=== PATIENT | male | born 1960 | race Caucasian/White ===

== ENCOUNTER 2016-12-18 04:28 | Inpatient (IN) | payer OTHER, MEDICARE ==
[~2016-12-18] VITALS: Ht 180.3 cm; Wt 72.7 kg
[2016-12-18] VITALS (16 sets, daily range): BP systolic 78–148; BP diastolic 48–80
[~2016-12-18 04:28] MED LIST: ALPR0.25 PO; CHOL100013 PO; POTASSIUM CHLO10 MEQ PO
[2016-12-18 04:41] LABS: BASO # 0.1 x10^3/uL (0.0-0.2); BASO % 1 % (0-3); EOS % 0 % (0-3); HEMATOCRIT 45.9 % (39.0-53.0); HEMOGLOBIN 14.9 g/dL (13.0-17.5); LYMPH # 1.3 x10^3/uL (1.0-4.8); LYMPH % 12 % (24-48); MEAN CORPUSCULAR HEMOGLOBIN 33 pg (25-35); MEAN CORPUSCULAR HGB CONC 33 g/dL (31-37); MEAN CORPUSCULAR VOLUME 100 fL (79-100); MONO % 4 % (0-9); NEUT % 83 % (31-73); PLATELET COUNT 333 x10^3/uL (140-400); RED BLOOD COUNT 4.58 x10^6/uL (4.30-5.70); RED CELL DISTRIBUTION WIDTH 15.2 % (11.5-14.5); WHITE BLOOD COUNT 11.5 x10^3/uL (4.0-11.0)
[2016-12-18] MEDS ORDERED: 0.9 % SODIUM CHLORIDE 10 ML DISP.SYRIN. IV PRN (04:45)
[2016-12-18] MEDS ORDERED: NALOXONE 2 MG/2 ML DISP.SYRIN. IV ONE (04:45)
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
[2016-12-18 04:54] LABS: CALCIUM 9.3 mg/dL (8.5-10.1); CREATININE 1.4 mg/dL (0.7-1.3); GFR 52.4; POTASSIUM 4.5 mmol/L (3.5-5.1)
[2016-12-18 04:56] LABS: ALBUMIN 3.8 g/dL (3.4-5.0); TOTAL BILIRUBIN 1.9 mg/dL (0.2-1.0); TOTAL PROTEIN 7.8 g/dL (6.4-8.2)
[2016-12-18] MEDS ORDERED: ONDANSETRON PF 4 MG/2 ML VIAL. IV PRN ×2 (05:00→06:00)
[2016-12-18] MEDS ORDERED: IPRATRPIUM/ALBUTEROL 0.5/2.5MG 3 ML NEBU. NEB ONE (05:00)
[2016-12-18] MEDS ORDERED: CONTRAST GIVEN MC PRN (05:15)
[2016-12-18] MEDS ORDERED: IOHEXOL 300 MG/ML 75 ML VIAL IV ONE (05:30)
[2016-12-18] MEDS ORDERED: NALOXONE 2 MG in IV DEXTROSE 5% 500 ML IV ONE (05:30)
[2016-12-18 05:32] LABS: INR 1.1 (0.8-1.1); PROTHROMBIN TIME PATIENT 13.4 SEC (11.7-14.0)
--- NOTE | 2016-12-18 05:45 | EKG ---
[facility] [address] [place] [address] Test Date: 2016-12-18 Test Time: 04:37:58 Pat Name: SHAMEKA VELEZ Department: Room: Gender: M Fitness Supervisor: : 1960 Requested By: CARLTON PIEDRA Order Number: [id number] Reading MD: Zay Munroe Measurements Intervals Carpenter Rate: 124 P: -112 VA: 76 QRS: -2 QRSD: 94 T: 49 QT: 354 QTc: 513 Interpretive Statements SUPRAVENTRICULAR RHYTHM LOW LIMB LEAD VOLTAGE QRS(T) CONTOUR ABNORMALITY CONSIDER ANTEROLATERAL MYOCARDIAL DAMAGE CONSISTENT WITH INFERIOR INFARCT PROBABLY OLD RI6.01 Unconfirmed report No previous ECG available for comparison Electronically Signed On 12-18-2016 13:25:47 CDT by Zay Munroe
[2016-12-18] MEDS ORDERED: PIPERACILLIN/TAZOBACTAM 3.375 GM in IV NORMAL SALINE 50ML 50 ML IV ONE (06:00)
--- NOTE | 2016-12-18 06:02 | RAD ---
INDICATION: head and neck pain after fall COMPARISON: October 06, 2015 TECHNIQUE: Axial CT images obtained through the head and cervical spine without intravenous contrast. Coronal and sagittal reformats processed of cervical spine. One or more of the following individualized dose reduction techniques were utilized for this examination: 1. Automated exposure control; 2. Adjustment of the mA and/or kV according to patient size; 3. Use of iterative reconstruction technique. FINDINGS: Head: No midline shift. Suprasellar cistern is not effaced. Scattered foci low attenuation of white matter. Postoperative changes to the left globe. Partial opacification of frontal sinus Cervical: No definite acute fracture. No significant malalignment. No evidence of perivertebral hematoma. Degenerative changes of cervical spine. Calcification within left side of neck soft tissues. IMPRESSION: No acute intracranial hemorrhage. Scattered foci of low-attenuation within the white matter. Nonspecific but can be seen with chronic small vessel ischemic disease. Partial opacification frontal sinus which can be from congestion or sinusitis. No definite acute fracture or dislocation of the cervical spine. Electronically signed by: Octavio Pimentel MD (12/18/2016 5:59 AM) [facility]
[2016-12-18 06:16] LABS: BARBITURATES NEG (NEG); BENZODIAZEPINES POS (NEG); CANNABINOIDS POS (NEG); COCAINE NEG (NEG); METHADONE NEG (NEG); OPIATES POS (NEG); PHENCYCLIDINE NEG (NEG)
--- NOTE | 2016-12-18 06:24 | RAD ---
INDICATION: pt. overdosed; Omni 300, 60ml COMPARISON: None. TECHNIQUE: Axial CT images obtained through the chest abdomen and pelvis with intravenous contrast. One or more of the following individualized dose reduction techniques were utilized for this examination: 1. Automated exposure control; 2. Adjustment of the mA and/or kV according to patient size; 3. Use of iterative reconstruction technique. FINDINGS: Chest: Mild cystic changes near lung apices. Mild linear opacity left lung base. Linear opacity right lung base. No evidence of pneumothorax. Mild groundglass opacity right upper lung. Thoracic aorta is not aneurysmal. Mild calcific atherosclerosis. Scattered small lymph nodes are seen within the mediastinum. 7 mm left lung nodule. Degenerative changes spine. Abdomen and pelvis: Abdominal aorta is not aneurysmal. Moderate calcific atherosclerosis. No intrahepatic bile duct dilation. No peripancreatic edema. Spleen unremarkable. No hydronephrosis. Bladder is partially distended. No dilated loops of bowel to suggest obstruction. Mild T12 compression deformity. Mild T11 loss of height. IMPRESSION: Mild groundglass opacity in right upper lung. Could be a region of atelectasis but pneumonitis also in differential. Linear opacities in the lower lungs. Could be secondary to atelectasis given the morphology but cannot exclude infectious causes. 7 mm left lung nodule. Mild compression deformities of T11 and T12 of unknown age. Would correlate with pain within the region. Calcific atherosclerosis. Fleischner Society recommendation for solid lung nodule follow up. (Radiology 2005; 237; 395-400): In a low risk patient: <4mm - No follow up required. >4-6mm- 12 month follow up, if unchanged, no further follow up. >6-8mm- 6-12 month follow up, then at 18-24 months if no change. >8mm- 3, 9, 24 month follow up or consideration of PET/CT. In a high risk patient (history of smoking or other known risk factors): <4mm - 12 month follow up, if unchanged then no further follow up. >4-6mm- 6-12 month follow up, then at 18-24 months if no change. >6-8mm- 3-6 month follow up, then at 9-12 months and 24 months if no change >8mm- Same as for low risk patient. Electronically signed by: Octavio Pimentel MD (12/18/2016 6:21 AM) [facility]
[2016-12-18] MEDS ORDERED: NALOXONE IV ONE ×3 (07:00→09:00)
[2016-12-18] MEDS ORDERED: DEXTROSE 5% IV ONE ×3 (07:00→09:00)
--- NOTE | 2016-12-18 07:28 | PDOC ---
PULMONARY PROGRESS NOTES Vitals Vital Signs Date Time Temp Pulse Resp B/P (MAP) Pulse Ox O2 Delivery O2 Flow Rate FiO2 12/18/16 06:00 106 105/60 (75) 93 Nasal Cannula 6.0 12/18/16 04:30 97.4 15 97.4 Lungs: Clear Labs Laboratory Tests Test 12/18/16 04:35 12/18/16 05:50 White Blood Count 11.5 x10^3/uL (4.0-11.0) Red Blood Count 4.58 x10^6/uL (4.30-5.70) Hemoglobin 14.9 g/dL (13.0-17.5) Hematocrit 45.9 % (39.0-53.0) Mean Corpuscular Volume 100 fL (79-100) Mean Corpuscular Hemoglobin 33 pg (25-35) Mean Corpuscular Hemoglobin Concent 33 g/dL (31-37) Red Cell Distribution Width 15.2 % (11.5-14.5) Platelet Count 333 x10^3/uL (140-400) Neutrophils (%) (Auto) 83 % (31-73) Lymphocytes (%) (Auto) 12 % (24-48) Monocytes (%) (Auto) 4 % (0-9) Eosinophils (%) (Auto) 0 % (0-3) Basophils (%) (Auto) 1 % (0-3) Neutrophils # (Auto) 9.5 x10^3uL (1.8-7.7) Lymphocytes # (Auto) 1.3 x10^3/uL (1.0-4.8) Monocytes # (Auto) 0.5 x10^3/uL (0.0-1.1) Eosinophils # (Auto) 0.0 x10^3/uL (0.0-0.7) Basophils # (Auto) 0.1 x10^3/uL (0.0-0.2) Prothrombin Time 13.4 SEC (11.7-14.0) Prothromb Time International Ratio 1.1 (0.8-1.1) Activated Partial Thromboplast Time 30 SEC (24-38) Sodium Level 137 mmol/L (136-145) Potassium Level 4.5 mmol/L (3.5-5.1) Chloride Level 96 mmol/L (98-107) Carbon Dioxide Level 29 mmol/L (21-32) Anion Gap 12 (6-14) Blood Urea Nitrogen 7 mg/dL (8-26) Creatinine 1.4 mg/dL (0.7-1.3) Estimated GFR (Cockcroft-Gault) 52.4 Glucose Level 214 mg/dL (70-99) Lactic Acid Level 5.6 mmol/L (0.4-2.0) Calcium Level 9.3 mg/dL (8.5-10.1) Total Bilirubin 1.9 mg/dL (0.2-1.0) Direct Bilirubin 1.0 mg/dL (0.0-0.2) Aspartate Amino Transf (AST/SGOT) 252 U/L (15-37) Alanine Aminotransferase (ALT/SGPT) 234 U/L (16-63) Alkaline Phosphatase 105 U/L (46-116) Creatine Kinase 129 U/L (39-308) Troponin I Quantitative 0.459 ng/mL (0.000-0.055) NJ-Hly-P-Type Natriuretic Peptide 639 pg/mL (0-124) Total Protein 7.8 g/dL (6.4-8.2) Albumin 3.8 g/dL (3.4-5.0) Lipase 101 U/L (73-393) Salicylates Level < 2.8 mg/dL (2.8-20.0) Salicylate Last Dose Date Unknown Salicylate Last Dose Time Unknown Acetaminophen Level < 2 mcg/ml (10-30) Acetaminophen Last Dose Date Unknown Acetaminophen Last Dose Time Unknown Urine Opiates Screen Pos (NEG) Urine Methadone Screen Neg (NEG) Urine Barbiturates Neg (NEG) Urine Phencyclidine Screen Neg (NEG) Urine Amphetamine/Methamphetamine Neg (NEG) Urine Benzodiazepines Screen Pos (NEG) Urine Cocaine Screen Neg (NEG) Urine Cannabinoids Screen Pos (NEG) Urine Ethyl Alcohol Neg (NEG) Laboratory Tests Test 12/18/16 04:35 12/18/16 05:50 White Blood Count 11.5 x10^3/uL (4.0-11.0) Red Blood Count 4.58 x10^6/uL (4.30-5.70) Hemoglobin 14.9 g/dL (13.0-17.5) Hematocrit 45.9 % (39.0-53.0) Mean Corpuscular Volume 100 fL (79-100) Mean Corpuscular Hemoglobin 33 pg (25-35) Mean Corpuscular Hemoglobin Concent 33 g/dL (31-37) Red Cell Distribution Width 15.2 % (11.5-14.5) Platelet Count 333 x10^3/uL (140-400) Neutrophils (%) (Auto) 83 % (31-73) Lymphocytes (%) (Auto) 12 % (24-48) Monocytes (%) (Auto) 4 % (0-9) Eosinophils (%) (Auto) 0 % (0-3) Basophils (%) (Auto) 1 % (0-3) Neutrophils # (Auto) 9.5 x10^3uL (1.8-7.7) Lymphocytes # (Auto) 1.3 x10^3/uL (1.0-4.8) Monocytes # (Auto) 0.5 x10^3/uL (0.0-1.1) Eosinophils # (Auto) 0.0 x10^3/uL (0.0-0.7) Basophils # (Auto) 0.1 x10^3/uL (0.0-0.2) Prothrombin Time 13.4 SEC (11.7-14.0) Prothromb Time International Ratio 1.1 (0.8-1.1) Activated Partial Thromboplast Time 30 SEC (24-38) Sodium Level 137 mmol/L (136-145) Potassium Level 4.5 mmol/L (3.5-5.1) Chloride Level 96 mmol/L (98-107) Carbon Dioxide Level 29 mmol/L (21-32) Anion Gap 12 (6-14) Blood Urea Nitrogen 7 mg/dL (8-26) Creatinine 1.4 mg/dL (0.7-1.3) Estimated GFR (Cockcroft-Gault) 52.4 Glucose Level 214 mg/dL (70-99) Lactic Acid Level 5.6 mmol/L (0.4-2.0) Calcium Level 9.3 mg/dL (8.5-10.1) Total Bilirubin 1.9 mg/dL (0.2-1.0) Direct Bilirubin 1.0 mg/dL (0.0-0.2) Aspartate Amino Transf (AST/SGOT) 252 U/L (15-37) Alanine Aminotransferase (ALT/SGPT) 234 U/L (16-63) Alkaline Phosphatase 105 U/L (46-116) Creatine Kinase 129 U/L (39-308) Troponin I Quantitative 0.459 ng/mL (0.000-0.055) OF-Oax-G-Type Natriuretic Peptide 639 pg/mL (0-124) Total Protein 7.8 g/dL (6.4-8.2) Albumin 3.8 g/dL (3.4-5.0) Lipase 101 U/L (73-393) Salicylates Level < 2.8 mg/dL (2.8-20.0) Salicylate Last Dose Date Unknown Salicylate Last Dose Time Unknown Acetaminophen Level < 2 mcg/ml (10-30) Acetaminophen Last Dose Date Unknown Acetaminophen Last Dose Time Unknown Urine Opiates Screen Pos (NEG) Urine Methadone Screen Neg (NEG) Urine Barbiturates Neg (NEG) Urine Phencyclidine Screen Neg (NEG) Urine Amphetamine/Methamphetamine Neg (NEG) Urine Benzodiazepines Screen Pos (NEG) Urine Cocaine Screen Neg (NEG) Urine Cannabinoids Screen Pos (NEG) Urine Ethyl Alcohol Neg (NEG) Medications Active Scripts Medications Dose Route/Sig Max Daily Dose Days Date Category Xanax (Alprazolam) 0.25 Mg Tablet 1 Tab PO DAILY 04/30/15 Reported Vitamin D (Cholecalciferol (Vitamin D3)) 1,000 Unit Capsule 1 Cap PO DAILY 04/30/15 Reported Potassium Chloride 10 Meq Capsule.er 1 Cap PO DAILY 04/30/15 Reported Impression . ACUTE RESP FAILURE SEC TO AECOPD AND NARCOTIC USE POLYSUBSTANCE USE PULMONARY CONTUSION 7 MM NODULE SEE ORDERS THANKS BETTE ZAZUETA MD Dec 18, 2016 07:28
[2016-12-18] MEDS ORDERED: ALBUTEROL SULFATE 2.5 MG/3 ML NEBU. NEB PRN (07:30)
[2016-12-18] MEDS: IV NORMAL SALINE 1000ML BAG 1,000 ML IV SCH ×2 (07:38→19:37)
[2016-12-18] MEDS: IPRATRPIUM/ALBUTEROL 0.5/2.5MG 3 ML NEBU. NEB SCH ×4 (08:00→20:06)
[2016-12-18] MEDS ORDERED: IPRATRPIUM/ALBUTEROL 0.5/2.5MG 3 ML NEBU. NEB SCH (08:00)
--- NOTE | 2016-12-18 08:04 | RAD ---
Indication fall, rib fractures. Pain. A single view of the chest was obtained and is compared to an examination 10/07/2015. The heart and pulmonary vessels are within normal limits. A focal process in the chest is not seen. Significant pleural fluid is not present. There is no pneumothorax. The visualized bony structures appear grossly intact. IMPRESSION: No acute or focal process is seen in the chest
[2016-12-18] MEDS ORDERED: IV NORMAL SALINE 1000ML BAG 1,000 ML IV ONE ×2 (08:45→11:15)
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
[2016-12-18] MEDS ORDERED: NICOTINE 14MG PATCH. TD PRN (09:00)
[2016-12-18] MEDS ORDERED: NICOTINE POLACRILEX 2MG GUM PACKAGE of 12. BC PRN (09:00)
[2016-12-18] MEDS ORDERED: ACETAMINOPHEN 325 MG TABLET. PO PRN (09:00)
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
[2016-12-18] MEDS: ENOXAPARIN 40 MG/0.4 ML SYRINGE. SQ SCH (09:20)
[2016-12-18] MEDS: LIDOCAINE (700MG/PATCH) PATCH. TD SCH (09:20)
[2016-12-18] MEDS: methylPREDNISolone SOD SUCC PF 125 MG/2 ML VIAL. IV SCH ×2 (09:21→21:00)
--- NOTE | 2016-12-18 11:34 | PDOC ---
Infectious Disease Note Vital Sign Vital Signs Vital Signs Date Time Temp Pulse Resp B/P (MAP) Pulse Ox O2 Delivery O2 Flow Rate FiO2 12/18/16 07:15 102 33 111/67 (82) 99 Nasal Cannula 6.0 12/18/16 06:15 97.7 97.7 Physical Exam PHYSICAL EXAM O2 2LNC Price Labs Lab Laboratory Tests Test 12/18/16 04:35 12/18/16 05:50 12/18/16 07:50 White Blood Count 11.5 x10^3/uL (4.0-11.0) Red Blood Count 4.58 x10^6/uL (4.30-5.70) Hemoglobin 14.9 g/dL (13.0-17.5) Hematocrit 45.9 % (39.0-53.0) Mean Corpuscular Volume 100 fL (79-100) Mean Corpuscular Hemoglobin 33 pg (25-35) Mean Corpuscular Hemoglobin Concent 33 g/dL (31-37) Red Cell Distribution Width 15.2 % (11.5-14.5) Platelet Count 333 x10^3/uL (140-400) Neutrophils (%) (Auto) 83 % (31-73) Lymphocytes (%) (Auto) 12 % (24-48) Monocytes (%) (Auto) 4 % (0-9) Eosinophils (%) (Auto) 0 % (0-3) Basophils (%) (Auto) 1 % (0-3) Neutrophils # (Auto) 9.5 x10^3uL (1.8-7.7) Lymphocytes # (Auto) 1.3 x10^3/uL (1.0-4.8) Monocytes # (Auto) 0.5 x10^3/uL (0.0-1.1) Eosinophils # (Auto) 0.0 x10^3/uL (0.0-0.7) Basophils # (Auto) 0.1 x10^3/uL (0.0-0.2) Prothrombin Time 13.4 SEC (11.7-14.0) Prothromb Time International Ratio 1.1 (0.8-1.1) Activated Partial Thromboplast Time 30 SEC (24-38) Sodium Level 137 mmol/L (136-145) Potassium Level 4.5 mmol/L (3.5-5.1) Chloride Level 96 mmol/L (98-107) Carbon Dioxide Level 29 mmol/L (21-32) Anion Gap 12 (6-14) Blood Urea Nitrogen 7 mg/dL (8-26) Creatinine 1.4 mg/dL (0.7-1.3) Estimated GFR (Cockcroft-Gault) 52.4 Glucose Level 214 mg/dL (70-99) Lactic Acid Level 5.6 mmol/L (0.4-2.0) 2.3 mmol/L (0.4-2.0) Calcium Level 9.3 mg/dL (8.5-10.1) Total Bilirubin 1.9 mg/dL (0.2-1.0) Direct Bilirubin 1.0 mg/dL (0.0-0.2) Aspartate Amino Transf (AST/SGOT) 252 U/L (15-37) Alanine Aminotransferase (ALT/SGPT) 234 U/L (16-63) Alkaline Phosphatase 105 U/L (46-116) Creatine Kinase 129 U/L (39-308) Troponin I Quantitative 0.459 ng/mL (0.000-0.055) GH-Yqe-O-Type Natriuretic Peptide 639 pg/mL (0-124) Total Protein 7.8 g/dL (6.4-8.2) Albumin 3.8 g/dL (3.4-5.0) Lipase 101 U/L (73-393) Salicylates Level < 2.8 mg/dL (2.8-20.0) Salicylate Last Dose Date Unknown Salicylate Last Dose Time Unknown Acetaminophen Level < 2 mcg/ml (10-30) Acetaminophen Last Dose Date Unknown Acetaminophen Last Dose Time Unknown Urine Opiates Screen Pos (NEG) Urine Methadone Screen Neg (NEG) Urine Barbiturates Neg (NEG) Urine Phencyclidine Screen Neg (NEG) Urine Amphetamine/Methamphetamine Neg (NEG) Urine Benzodiazepines Screen Pos (NEG) Urine Cocaine Screen Neg (NEG) Urine Cannabinoids Screen Pos (NEG) Urine Ethyl Alcohol Neg (NEG) Objective Assessment Pneumonitis - + sinus drainage and cough Lactic acidosis, improved Encephalopathy, improved post Narcan DIONNE Leukocytosis, on steroids now Elevated LFTs Recent rib fracture and limited ROM/pain of left shoulder post fall off ladder a week ago Polypharmacy: benzos, opiates Marijuana use Plan Plan of Care Levaquin Cont Zosyn, 8/5 Sputum cult and strep antigen f/u am labs and Supportive care Thank you Attending Co-Sign Attending Co-Sign The patient was seen and interviewed as well as examined at the bedside. The chart was reviewed. The case was discussed. Agree with the plan of care. LATRICIA CHOI APRN Dec 18, 2016 11:34 FADUMO SONG MD Dec 18, 2016 12:16
[2016-12-18] MEDS: PIPERACILLIN/TAZOBACTAM 3.375 GM in IV NORMAL SALINE 50ML 50 ML IV SCH ×2 (12:40→17:14)
--- NOTE | 2016-12-18 14:57 | PDOC2 ---
CONSULT Date of Consult Date of Consult DATE: 12/18/16 TIME: 14:53 Reason for Consult Reason for Consult: Chest pain and possible heart failure Referring Physician Referring Physician: Dr. Zarco Identification/Chief Complaint Chief Complaint Patient was found nonresponsive at home. Problems: Source Source: Caregiver, Chart review History of Present Illness Reason for Visit: The patient is a 56-year-old male who was found unresponsive at home by his family early this morning. EMS was called and the patient responded to Narcan. His history is significant for hypertension, anxiety and a left eye implants. The patient also had a fall and had a reported rib fracture last week. At the present time he is relatively comfortable in bed. He has no reported history of coronary artery disease or documented heart failure. Past Medical History Cardiovascular: HTN Pulmonary: No pertinent hx, COPD Psych: Anxiety Past Surgical History Past Surgical History: Other Family History Family History: No Significant Social History <1 pack per day ALCOHOL: other Drugs: None, Marijuana Current Problem List Problem List Problems Medical Problems: (1) CHF (congestive heart failure) Status: Acute (2) Elevated liver enzymes Status: Acute (3) Elevated troponin Status: Acute (4) Respiratory failure Status: Acute (5) Rib fracture Status: Acute (6) Unintentional poisoning by opioid Status: Acute Current Medications Current Medications Current Medications Sodium Chloride (Normal Saline Flush) 10 ml QSHIFT PRN IV AFTER MEDS AND BLOOD DRAWS; Start 12/18/16 at 04:45 Albuterol/ Ipratropium (Duoneb) 3 ml 1X ONCE NEB Last administered on 04:40; Start 12/18/16 at 05:00; Stop 12/18/16 at 05:01; Status DC Naloxone HCl (Narcan) 2 mg 1X ONCE IV Last administered on 12/18/16 04:41; Start 12/18/16 at 04:45; Stop 12/18/16 at 04:46; Status DC Ondansetron HCl (Zofran) 4 mg PRN Q6HRS PRN IV NAUSEA/VOMITING; Start 12/18/16 at 05:00 Naloxone HCl 2 mg/ Dextrose 502 ml @ 0 mls/hr 1X ONCE IV Last administered on 12/18/16 05:08; Start 12/18/16 at 05:30; Stop 12/18/16 at 05:31; Status DC Iohexol (Omnipaque 300 Mg/ml) 60 ml 1X ONCE IV ; Start 12/18/16 at 05:30; Stop 12/18/16 at 05:31; Status DC Info (Do NOT chart on this entry -- for MONITORING) 1 each PRN DAILY PRN MC SEE COMMENTS; Start 12/18/16 at 05:15; Stop 12/20/16 at 05:14 Piperacillin Sod/ Tazobactam Sod 3.375 gm/Sodium Chloride 50 ml @ 100 mls/hr 1X ONCE IV Last administered on 12/18/16 06:48; Start 12/18/16 at 06:00; Stop 12/18/16 at 06:29; Status DC Levofloxacin/ Dextrose 150 ml @ 100 mls/hr 1X ONCE IV Last administered on 06:48; Start 12/18/16 at 06:00; Stop 12/18/16 at 07:29; Status DC Ondansetron HCl (Zofran) 4 mg PRN Q8HRS PRN IV NAUSEA/VOMITING; Start 12/18/16 at 06:00; Stop 12/18/16 at 07:32; Status DC Albuterol/ Ipratropium (Duoneb) 3 ml RTQID NEB ; Start 12/18/16 at 08:00; Stop at 08:00; Status DC Naloxone HCl 2 mg/ Dextrose 102 ml @ 0 mls/hr 1X ONCE IV Last administered on 12/18/16 06:47; Start 12/18/16 at 07:00; Stop 12/18/16 at 07:01; Status DC Naloxone HCl 2 mg/ Dextrose 102 ml @ 0 mls/hr 1X ONCE IV Last administered on 12/18/16 07:38; Start 12/18/16 at 07:30; Stop 12/18/16 at 07:31; Status DC Sodium Chloride 1,000 ml @ 100 mls/hr Q10H IV Last administered on 12/18/16 07 :38; Start 12/18/16 at 07:15 Levofloxacin/ Dextrose 100 ml @ 100 mls/hr Q24H IV ; Start 12/18/16 at 08:00; Stop 12/18/16 at 08:00; Status DC Enoxaparin Sodium (Lovenox 40mg Syringe) 40 mg DAILY SQ Last administered on 09:20; Start 12/18/16 at 09:00 Albuterol Sulfate (Ventolin Neb Soln) 2.5 mg PRN Q2HR PRN NEB DYSPNEA; Start at 07:30 Albuterol/ Ipratropium (Duoneb) 3 ml RTQID NEB Last administered on 12/18/16 11 :55; Start 12/18/16 at 08:00 Methylprednisolone Sodium Succinate (SOLU-Medrol 125MG VIAL) 80 mg BID IV Last administered on 12/18/16 09:21; Start 12/18/16 at 09:00 Levofloxacin/ Dextrose 100 ml @ 100 mls/hr Q24H IV ; Start 12/19/16 at 07:00 Lidocaine (Lidoderm) 1 patch DAILY TD Last administered on 12/18/16 09:20; Start 12/18/16 at 09:00 Sodium Chloride 1,000 ml @ 1,000 mls/hr 1X ONCE IV Last administered on 08:53; Start 12/18/16 at 08:45; Stop 12/18/16 at 09:44; Status DC Naloxone HCl 2 mg/ Dextrose 102 ml @ 0 mls/hr 1X ONCE IV ; Start 12/18/16 at 09: 00; Stop 12/18/16 at 09:00; Status DC Acetaminophen (Tylenol) 650 mg PRN Q6HRS PRN PO pain; Start 12/18/16 at 09:00 Nicotine (Nicoderm Cq 14mg) 1 patch PRN DAILY PRN TD SMOKING CESSATION Last administered on 12/18/16 09:20; Start 12/18/16 at 09:00 Nicotine Polacrilex (Nicorette Gum) 1 each PRN Q1HR PRN BC SMOKING CESSATION; Start 12/18/16 at 09:00 Sodium Chloride 1,000 ml @ 1,000 mls/hr 1X ONCE IV Last administered on 12:40; Start 12/18/16 at 11:15; Stop 12/18/16 at 12:14; Status DC Piperacillin Sod/ Tazobactam Sod 3.375 gm/Sodium Chloride 50 ml @ 100 mls/hr Q6HRS IV Last administered on 12/18/16 12:40; Start 12/18/16 at 13:00 Active Scripts Active Reported Xanax (Alprazolam) 0.25 Mg Tablet 1 Tab PO DAILY Allergies Allergies: Coded Allergies: acetaminophen (Verified Adverse Reaction, Intermediate, LIVER CA, HEP C, 04/30/15) ROS General: YES: Fatigue Physical Exam General: mild distress Lungs: Other (mildly decreased breath sounds) Heart: Other (regular rhythm with rate of 100) Abdomen: Normal bowel sounds Vitals VITALS Vital Signs Date Time Temp Pulse Resp B/P (MAP) Pulse Ox O2 Delivery O2 Flow Rate FiO2 12/18/16 11:56 97 Nasal Cannula 2.0 12/18/16 11:00 98 17 105/62 (76) 12/18/16 09:00 97.8 97.8 Labs Labs Laboratory Tests Test 12/18/16 04:35 12/18/16 05:50 12/18/16 07:50 12/18/16 12:05 White Blood Count 11.5 x10^3/uL (4.0-11.0) Red Blood Count 4.58 x10^6/uL (4.30-5.70) Hemoglobin 14.9 g/dL (13.0-17.5) Hematocrit 45.9 % (39.0-53.0) Mean Corpuscular Volume 100 fL (79-100) Mean Corpuscular Hemoglobin 33 pg (25-35) Mean Corpuscular Hemoglobin Concent 33 g/dL (31-37) Red Cell Distribution Width 15.2 % (11.5-14.5) Platelet Count 333 x10^3/uL (140-400) Neutrophils (%) (Auto) 83 % (31-73) Lymphocytes (%) (Auto) 12 % (24-48) Monocytes (%) (Auto) 4 % (0-9) Eosinophils (%) (Auto) 0 % (0-3) Basophils (%) (Auto) 1 % (0-3) Neutrophils # (Auto) 9.5 x10^3uL (1.8-7.7) Lymphocytes # (Auto) 1.3 x10^3/uL (1.0-4.8) Monocytes # (Auto) 0.5 x10^3/uL (0.0-1.1) Eosinophils # (Auto) 0.0 x10^3/uL (0.0-0.7) Basophils # (Auto) 0.1 x10^3/uL (0.0-0.2) Prothrombin Time 13.4 SEC (11.7-14.0) Prothromb Time International Ratio 1.1 (0.8-1.1) Activated Partial Thromboplast Time 30 SEC (24-38) Sodium Level 137 mmol/L (136-145) Potassium Level 4.5 mmol/L (3.5-5.1) Chloride Level 96 mmol/L (98-107) Carbon Dioxide Level 29 mmol/L (21-32) Anion Gap 12 (6-14) Blood Urea Nitrogen 7 mg/dL (8-26) Creatinine 1.4 mg/dL (0.7-1.3) Estimated GFR (Cockcroft-Gault) 52.4 Glucose Level 214 mg/dL (70-99) Lactic Acid Level 5.6 mmol/L (0.4-2.0) 2.3 mmol/L (0.4-2.0) Calcium Level 9.3 mg/dL (8.5-10.1) Total Bilirubin 1.9 mg/dL (0.2-1.0) Direct Bilirubin 1.0 mg/dL (0.0-0.2) Aspartate Amino Transf (AST/SGOT) 252 U/L (15-37) Alanine Aminotransferase (ALT/SGPT) 234 U/L (16-63) Alkaline Phosphatase 105 U/L (46-116) Creatine Kinase 129 U/L (39-308) Troponin I Quantitative 0.459 ng/mL (0.000-0.055) 0.368 ng/mL (0.000-0.055) EC-Flf-Q-Type Natriuretic Peptide 639 pg/mL (0-124) Total Protein 7.8 g/dL (6.4-8.2) Albumin 3.8 g/dL (3.4-5.0) Lipase 101 U/L (73-393) Salicylates Level < 2.8 mg/dL (2.8-20.0) Salicylate Last Dose Date Unknown Salicylate Last Dose Time Unknown Acetaminophen Level < 2 mcg/ml (10-30) Acetaminophen Last Dose Date Unknown Acetaminophen Last Dose Time Unknown Urine Opiates Screen Pos (NEG) Urine Methadone Screen Neg (NEG) Urine Barbiturates Neg (NEG) Urine Phencyclidine Screen Neg (NEG) Urine Amphetamine/Methamphetamine Neg (NEG) Urine Benzodiazepines Screen Pos (NEG) Urine Cocaine Screen Neg (NEG) Urine Cannabinoids Screen Pos (NEG) Urine Ethyl Alcohol Neg (NEG) Triglycerides Level 29 mg/dL (0-150) Cholesterol Level 116 mg/dL (0-200) LDL Cholesterol, Calculated 53 mg/dL (0-100) VLDL Cholesterol, Calculated 6 mg/dL (0-40) Non-HDL Cholesterol Calculated 59 mg/dL (0-129) HDL Cholesterol 57 mg/dL (40-60) Cholesterol/HDL Ratio 2.0 Laboratory Tests Test 12/18/16 04:35 12/18/16 05:50 12/18/16 07:50 12/18/16 12:05 White Blood Count 11.5 x10^3/uL (4.0-11.0) Red Blood Count 4.58 x10^6/uL (4.30-5.70) Hemoglobin 14.9 g/dL (13.0-17.5) Hematocrit 45.9 % (39.0-53.0) Mean Corpuscular Volume 100 fL (79-100) Mean Corpuscular Hemoglobin 33 pg (25-35) Mean Corpuscular Hemoglobin Concent 33 g/dL (31-37) Red Cell Distribution Width 15.2 % (11.5-14.5) Platelet Count 333 x10^3/uL (140-400) Neutrophils (%) (Auto) 83 % (31-73) Lymphocytes (%) (Auto) 12 % (24-48) Monocytes (%) (Auto) 4 % (0-9) Eosinophils (%) (Auto) 0 % (0-3) Basophils (%) (Auto) 1 % (0-3) Neutrophils # (Auto) 9.5 x10^3uL (1.8-7.7) Lymphocytes # (Auto) 1.3 x10^3/uL (1.0-4.8) Monocytes # (Auto) 0.5 x10^3/uL (0.0-1.1) Eosinophils # (Auto) 0.0 x10^3/uL (0.0-0.7) Basophils # (Auto) 0.1 x10^3/uL (0.0-0.2) Prothrombin Time 13.4 SEC (11.7-14.0) Prothromb Time International Ratio 1.1 (0.8-1.1) Activated Partial Thromboplast Time 30 SEC (24-38) Sodium Level 137 mmol/L (136-145) Potassium Level 4.5 mmol/L (3.5-5.1) Chloride Level 96 mmol/L (98-107) Carbon Dioxide Level 29 mmol/L (21-32) Anion Gap 12 (6-14) Blood Urea Nitrogen 7 mg/dL (8-26) Creatinine 1.4 mg/dL (0.7-1.3) Estimated GFR (Cockcroft-Gault) 52.4 Glucose Level 214 mg/dL (70-99) Lactic Acid Level 5.6 mmol/L (0.4-2.0) 2.3 mmol/L (0.4-2.0) Calcium Level 9.3 mg/dL (8.5-10.1) Total Bilirubin 1.9 mg/dL (0.2-1.0) Direct Bilirubin 1.0 mg/dL (0.0-0.2) Aspartate Amino Transf (AST/SGOT) 252 U/L (15-37) Alanine Aminotransferase (ALT/SGPT) 234 U/L (16-63) Alkaline Phosphatase 105 U/L (46-116) Creatine Kinase 129 U/L (39-308) Troponin I Quantitative 0.459 ng/mL (0.000-0.055) 0.368 ng/mL (0.000-0.055) TP-Zva-B-Type Natriuretic Peptide 639 pg/mL (0-124) Total Protein 7.8 g/dL (6.4-8.2) Albumin 3.8 g/dL (3.4-5.0) Lipase 101 U/L (73-393) Salicylates Level < 2.8 mg/dL (2.8-20.0) Salicylate Last Dose Date Unknown Salicylate Last Dose Time Unknown Acetaminophen Level < 2 mcg/ml (10-30) Acetaminophen Last Dose Date Unknown Acetaminophen Last Dose Time Unknown Urine Opiates Screen Pos (NEG) Urine Methadone Screen Neg (NEG) Urine Barbiturates Neg (NEG) Urine Phencyclidine Screen Neg (NEG) Urine Amphetamine/Methamphetamine Neg (NEG) Urine Benzodiazepines Screen Pos (NEG) Urine Cocaine Screen Neg (NEG) Urine Cannabinoids Screen Pos (NEG) Urine Ethyl Alcohol Neg (NEG) Triglycerides Level 29 mg/dL (0-150) Cholesterol Level 116 mg/dL (0-200) LDL Cholesterol, Calculated 53 mg/dL (0-100) VLDL Cholesterol, Calculated 6 mg/dL (0-40) Non-HDL Cholesterol Calculated 59 mg/dL (0-129) HDL Cholesterol 57 mg/dL (40-60) Cholesterol/HDL Ratio 2.0 Assessment/Plan Assessment/Plan 1. Medication overdose as above. Patient responded to Narcan. Discussion regarding polydrug use as above. 2. Acute respiratory failure with lactic acidosis. Significantly improved. 3. Possible heart failure. We will check echocardiogram to evaluate LV function. 4. History of hip fracture and chest discomfort. Minimal troponin elevation at 0.459. No acute ischemic EKG changes. We'll check echocardiogram as above and recheck a troponin level in the morning. Thank you for allowing us to participate in the care of your patient. ERICA CRAWFORD MD Dec 18, 2016 14:57
[2016-12-18] MEDS ORDERED: HYDR4TAB45 PO (16:30)
[2016-12-18] MEDS ORDERED: BREO ELLIPTA 11 EACH IH (16:30)
[2016-12-18] MEDS ORDERED: oxyCODONE/APAP 7.5/325 1 TAB TABLET PO PRN (17:00)
[2016-12-18] MEDS: oxyCODONE IR 5 MG TABLET PO PRN (17:14)
[2016-12-18] MEDS ORDERED: FAMOTIDINE 20 MG TABLET. PO SCH (21:00)
[2016-12-18] MEDS: ALPRAZolam 0.25 MG TABLET PO PRN (21:00)
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
[2016-12-19] MEDS: PIPERACILLIN/TAZOBACTAM 3.375 GM in IV NORMAL SALINE 50ML 50 ML IV SCH ×3 (00:50→12:06)
[2016-12-19] MEDS: oxyCODONE IR 5 MG TABLET PO PRN ×4 (01:49→17:28)
[2016-12-19 03:00] VITALS: BP 127/61
[2016-12-19] MEDS: IV NORMAL SALINE 1000ML BAG 1,000 ML IV SCH (06:06)
[2016-12-19 07:00] VITALS: BP 128/71
[2016-12-19] MEDS: IPRATRPIUM/ALBUTEROL 0.5/2.5MG 3 ML NEBU. NEB SCH ×3 (07:14→15:32)
[2016-12-19 07:16] LABS: BASO % 0 % (0-3); EOS % 0 % (0-3); HEMATOCRIT 39.4 % (39.0-53.0); HEMOGLOBIN 12.9 g/dL (13.0-17.5); LYMPH # 0.5 x10^3/uL (1.0-4.8); LYMPH % 4 % (24-48); MEAN CORPUSCULAR HEMOGLOBIN 33 pg (25-35); MEAN CORPUSCULAR HGB CONC 33 g/dL (31-37); MEAN CORPUSCULAR VOLUME 100 fL (79-100); MONO % 3 % (0-9); NEUT % 93 % (31-73); PLATELET COUNT 263 x10^3/uL (140-400); RED BLOOD COUNT 3.95 x10^6/uL (4.30-5.70); RED CELL DISTRIBUTION WIDTH 15.1 % (11.5-14.5); WHITE BLOOD COUNT 11.8 x10^3/uL (4.0-11.0)
[2016-12-19 07:24] LABS: ALBUMIN/GLOBULIN RATIO 1.1 (1.0-1.7); CALCIUM 8.5 mg/dL (8.5-10.1); CREATININE 0.7 mg/dL (0.7-1.3); GFR 116.7; MAGNESIUM 1.7 mg/dL (1.8-2.4); POTASSIUM 4.4 mmol/L (3.5-5.1); TOTAL BILIRUBIN 0.4 mg/dL (0.2-1.0); TOTAL PROTEIN 5.7 g/dL (6.4-8.2)
[2016-12-19] MEDS: LIDOCAINE (700MG/PATCH) PATCH. TD SCH (08:51)
[2016-12-19] MEDS: ALPRAZolam 0.25 MG TABLET PO PRN (08:51)
[2016-12-19] MEDS: methylPREDNISolone SOD SUCC PF 125 MG/2 ML VIAL. IV SCH (08:52)
[2016-12-19] MEDS: ENOXAPARIN 40 MG/0.4 ML SYRINGE. SQ SCH (08:52)
[2016-12-19 11:00] VITALS: BP 144/70
--- NOTE | 2016-12-19 12:13 | PDOC ---
CARDIO Progress Notes Date and Time Date of Service 12/19/2016 Time of Evaluation 1200 Subjective Subjective: No Chest Pain, No shortness of breath, No Palpitations, No Dizziness Vitals Vitals Vital Signs Date Time Temp Pulse Resp B/P (MAP) Pulse Ox O2 Delivery O2 Flow Rate FiO2 12/19/16 11:36 96 Nasal Cannula 2.0 12/19/16 11:00 97.5 90 18 144/70 (94) 97.5 Weight Weight [ ] Input and Output Intake and Output Intake and Output 12/19/16 07:00 Intake Total 3456 ml Output Total 1200 ml Balance 2256 ml Intake Oral 500 ml IV Total 2956 ml Output Urine Total 1200 ml # Voids 2 Laboratory Labs Laboratory Tests Test 12/18/16 17:43 12/19/16 06:30 12/19/16 06:40 Troponin I Quantitative 0.155 ng/mL (0.000-0.055) Sodium Level 140 mmol/L (136-145) Potassium Level 4.4 mmol/L (3.5-5.1) Chloride Level 104 mmol/L (98-107) Carbon Dioxide Level 29 mmol/L (21-32) Anion Gap 7 (6-14) Blood Urea Nitrogen 7 mg/dL (8-26) Creatinine 0.7 mg/dL (0.7-1.3) Estimated GFR (Cockcroft-Gault) 116.7 BUN/Creatinine Ratio 10 (6-20) Glucose Level 139 mg/dL (70-99) Calcium Level 8.5 mg/dL (8.5-10.1) Magnesium Level 1.7 mg/dL (1.8-2.4) Total Bilirubin 0.4 mg/dL (0.2-1.0) Aspartate Amino Transf (AST/SGOT) 145 U/L (15-37) Alanine Aminotransferase (ALT/SGPT) 252 U/L (16-63) Alkaline Phosphatase 71 U/L (46-116) Total Protein 5.7 g/dL (6.4-8.2) Albumin 3.0 g/dL (3.4-5.0) Albumin/Globulin Ratio 1.1 (1.0-1.7) White Blood Count 11.8 x10^3/uL (4.0-11.0) Red Blood Count 3.95 x10^6/uL (4.30-5.70) Hemoglobin 12.9 g/dL (13.0-17.5) Hematocrit 39.4 % (39.0-53.0) Mean Corpuscular Volume 100 fL (79-100) Mean Corpuscular Hemoglobin 33 pg (25-35) Mean Corpuscular Hemoglobin Concent 33 g/dL (31-37) Red Cell Distribution Width 15.1 % (11.5-14.5) Platelet Count 263 x10^3/uL (140-400) Neutrophils (%) (Auto) 93 % (31-73) Lymphocytes (%) (Auto) 4 % (24-48) Monocytes (%) (Auto) 3 % (0-9) Eosinophils (%) (Auto) 0 % (0-3) Basophils (%) (Auto) 0 % (0-3) Neutrophils # (Auto) 10.9 x10^3uL (1.8-7.7) Lymphocytes # (Auto) 0.5 x10^3/uL (1.0-4.8) Monocytes # (Auto) 0.3 x10^3/uL (0.0-1.1) Eosinophils # (Auto) 0.0 x10^3/uL (0.0-0.7) Basophils # (Auto) 0.0 x10^3/uL (0.0-0.2) Microbiology Micro Microbiology 12/18/16 Blood Culture - Preliminary, Resulted NO GROWTH AFTER 1 DAY Physical Exam HEENT: Neck Supple W Full Motion Chest: Symmetric LUNGS: Other (upper rhonchi) Heart: S1S2, RRR, no gallops, murmurs Abdomen: Soft N/T Extremities: No Calf Tenderness Neurology: alert, oriented, follow commands Assessment Assessment 1. Possible Opioid OD with transaminitis: responded to narcan 2. Acute respiratory failure/COPD with lactic acidosis: from opioid use with likely aspiration Per ID and Pulmonary 3. Acute diastolic CHF: likely induced by above. Much improved. 4. Elevated troponin: Peaked at 0.45 likely demand mediated from hypoxia/fall/ acidosis. No EKG changes. 5. Fall with rib fracture History of hip fracture 6. Substance abuse 7. Hx of seizure: unmedicated. Verbalized having prior to admission Recommendations 1. Further recommendation after TTE results. 2. Supportive care. ISABEL MCKEON HOGSHEAD FILLER Dec 19, 2016 12:13
[2016-12-19 12:29] LABS: PLT ESTIMATE ADEQUATE (ADEQUATE)
--- NOTE | 2016-12-19 13:03 | CARD ---
APPROVED REPORT EXAM: Two-dimensional and M-mode echocardiogram with Doppler and color Doppler. Other Information Quality : GoodHR: 81bpm Rhythm : NSR INDICATION Heart failure RISK FACTORS Smoking 2D DIMENSIONS RVDd3.1 (2.9-3.5cm)Left Atrium(2D)2.6 (1.6-4.0cm) IVSd1.0 (0.7-1.1cm)Aortic Root(2D)2.5 (2.0-3.7cm) LVDd4.1 (3.9-5.9cm)LVOT Diameter2.4 (1.8-2.4cm) PWd0.7 (0.7-1.1cm)LVDs2.9 (2.5-4.0cm) FS (%) 29.3 %SV41.5 ml LVEF(%)56.7 (>50%) Aortic Valve AoV Peak Anthony.117.2cm/sAoV VTI24.7cm AO Peak GR.5.5mmHgLVOT Peak Anthony.90.6cm/s AO Mean GR.3mmHgAVA (VMAX)3.52cm2 Mitral Valve MV E Kokzelhz06.2cm/sMV E Peak Gr.4mmHg MV DECEL [id number] A Cahxhyfv950.9cm/s MV E Mean Gr.2mmHgE/A Ratio0.7 MV A [id number] Pulmonary Valve PV Peak Udmkhzvo87.4cm/s Tricuspid Valve TR P. [id number]/sTR Peak Gr.27mmHg LEFT VENTRICLE The left ventricle is normal size. There is normal left ventricular wall thickness. The left ventricu lar systolic function is normal and the ejection fraction is within normal range. The Ejection Fracti on is 55-60%. There is normal LV segmental wall motion. Transmitral Doppler flow pattern is Grade I-a bnormal relaxation pattern. RIGHT VENTRICLE The right ventricle is normal size. There is normal right ventricular wall thickness. The right ventr icular systolic function is normal. ATRIA The left atrium size is normal. The right atrium size is normal. The interatrial septum is intact wit h no evidence for an atrial septal defect or patent foramen ovale as noted on 2-D or Doppler imaging. AORTIC VALVE The aortic valve is mildly thickened. The aortic valve is trileaflet. Doppler and Color Flow revealed no significant aortic regurgitation. There is no significant aortic valvular stenosis. MITRAL VALVE The mitral valve leaflets are mildly thickened. There is no evidence of mitral valve prolapse. There is no mitral valve stenosis. Doppler and Color Flow revealed trace mitral regurgitation. TRICUSPID VALVE Doppler and Color Flow revealed trace tricuspid regurgitation. The pulmonary artery systolic pressure is estimated at 27 mmHg. There is no pulmonary hypertension. PULMONIC VALVE The pulmonic valve is not well visualized but appears to open well. Doppler and Color Flow revealed n o pulmonic valvular regurgitation. There is no pulmonic valvular stenosis by spectral Doppler. GREAT VESSELS The aortic root is normal in size. The ascending aorta is normal in size. The pulmonary artery is nor mal. The IVC is normal in size and collapses >50% with inspiration. PERICARDIAL EFFUSION There is no evidence of significant pericardial effusion. Critical Notification Critical Value: No <Conclusion> The left ventricle is normal size. The left ventricular systolic function is normal and the ejection fraction is within normal range. The Ejection Fraction is 55-60%. There is no significant aortic valvular stenosis. Doppler and Color Flow revealed no significant aortic regurgitation. Doppler and Color Flow revealed trace mitral regurgitation. Doppler and Color Flow revealed trace tricuspid regurgitation. The pulmonary artery systolic pressure is estimated at 27 mmHg. There is no evidence of significant pericardial effusion.
[2016-12-19 14:40] VITALS: BP 135/71
--- NOTE | 2016-12-19 14:50 | PDOC ---
PULMONARY PROGRESS NOTES Subjective feels much better wants to go home Vitals Vital Signs Date Time Temp Pulse Resp B/P (MAP) Pulse Ox O2 Delivery O2 Flow Rate FiO2 12/19/16 14:40 97.7 102 18 135/71 (92) 93 Room Air 97.7 12/19/16 11:36 2.0 General: Alert, No acute distress Lungs: Clear Cardiovascular: S1 Abdomen: Soft Neuro Exam: Alert Extremities: No Edema Skin: Warm Labs Laboratory Tests Test 12/18/16 04:35 12/18/16 05:50 12/18/16 07:50 12/18/16 12:05 White Blood Count 11.5 x10^3/uL (4.0-11.0) Red Blood Count 4.58 x10^6/uL (4.30-5.70) Hemoglobin 14.9 g/dL (13.0-17.5) Hematocrit 45.9 % (39.0-53.0) Mean Corpuscular Volume 100 fL (79-100) Mean Corpuscular Hemoglobin 33 pg (25-35) Mean Corpuscular Hemoglobin Concent 33 g/dL (31-37) Red Cell Distribution Width 15.2 % (11.5-14.5) Platelet Count 333 x10^3/uL (140-400) Neutrophils (%) (Auto) 83 % (31-73) Lymphocytes (%) (Auto) 12 % (24-48) Monocytes (%) (Auto) 4 % (0-9) Eosinophils (%) (Auto) 0 % (0-3) Basophils (%) (Auto) 1 % (0-3) Neutrophils # (Auto) 9.5 x10^3uL (1.8-7.7) Lymphocytes # (Auto) 1.3 x10^3/uL (1.0-4.8) Monocytes # (Auto) 0.5 x10^3/uL (0.0-1.1) Eosinophils # (Auto) 0.0 x10^3/uL (0.0-0.7) Basophils # (Auto) 0.1 x10^3/uL (0.0-0.2) Prothrombin Time 13.4 SEC (11.7-14.0) Prothromb Time International Ratio 1.1 (0.8-1.1) Activated Partial Thromboplast Time 30 SEC (24-38) Sodium Level 137 mmol/L (136-145) Potassium Level 4.5 mmol/L (3.5-5.1) Chloride Level 96 mmol/L (98-107) Carbon Dioxide Level 29 mmol/L (21-32) Anion Gap 12 (6-14) Blood Urea Nitrogen 7 mg/dL (8-26) Creatinine 1.4 mg/dL (0.7-1.3) Estimated GFR (Cockcroft-Gault) 52.4 Glucose Level 214 mg/dL (70-99) Lactic Acid Level 5.6 mmol/L (0.4-2.0) 2.3 mmol/L (0.4-2.0) Calcium Level 9.3 mg/dL (8.5-10.1) Total Bilirubin 1.9 mg/dL (0.2-1.0) Direct Bilirubin 1.0 mg/dL (0.0-0.2) Aspartate Amino Transf (AST/SGOT) 252 U/L (15-37) Alanine Aminotransferase (ALT/SGPT) 234 U/L (16-63) Alkaline Phosphatase 105 U/L (46-116) Creatine Kinase 129 U/L (39-308) Troponin I Quantitative 0.459 ng/mL (0.000-0.055) 0.368 ng/mL (0.000-0.055) BP-Tmm-D-Type Natriuretic Peptide 639 pg/mL (0-124) Total Protein 7.8 g/dL (6.4-8.2) Albumin 3.8 g/dL (3.4-5.0) Lipase 101 U/L (73-393) Salicylates Level < 2.8 mg/dL (2.8-20.0) Salicylate Last Dose Date Unknown Salicylate Last Dose Time Unknown Acetaminophen Level < 2 mcg/ml (10-30) Acetaminophen Last Dose Date Unknown Acetaminophen Last Dose Time Unknown Urine Opiates Screen Pos (NEG) Urine Methadone Screen Neg (NEG) Urine Barbiturates Neg (NEG) Urine Phencyclidine Screen Neg (NEG) Urine Amphetamine/Methamphetamine Neg (NEG) Urine Benzodiazepines Screen Pos (NEG) Urine Cocaine Screen Neg (NEG) Urine Cannabinoids Screen Pos (NEG) Urine Ethyl Alcohol Neg (NEG) Triglycerides Level 29 mg/dL (0-150) Cholesterol Level 116 mg/dL (0-200) LDL Cholesterol, Calculated 53 mg/dL (0-100) VLDL Cholesterol, Calculated 6 mg/dL (0-40) Non-HDL Cholesterol Calculated 59 mg/dL (0-129) HDL Cholesterol 57 mg/dL (40-60) Cholesterol/HDL Ratio 2.0 Test 12/18/16 17:43 12/19/16 06:30 12/19/16 06:40 Troponin I Quantitative 0.155 ng/mL (0.000-0.055) Sodium Level 140 mmol/L (136-145) Potassium Level 4.4 mmol/L (3.5-5.1) Chloride Level 104 mmol/L (98-107) Carbon Dioxide Level 29 mmol/L (21-32) Anion Gap 7 (6-14) Blood Urea Nitrogen 7 mg/dL (8-26) Creatinine 0.7 mg/dL (0.7-1.3) Estimated GFR (Cockcroft-Gault) 116.7 BUN/Creatinine Ratio 10 (6-20) Glucose Level 139 mg/dL (70-99) Calcium Level 8.5 mg/dL (8.5-10.1) Magnesium Level 1.7 mg/dL (1.8-2.4) Total Bilirubin 0.4 mg/dL (0.2-1.0) Aspartate Amino Transf (AST/SGOT) 145 U/L (15-37) Alanine Aminotransferase (ALT/SGPT) 252 U/L (16-63) Alkaline Phosphatase 71 U/L (46-116) Total Protein 5.7 g/dL (6.4-8.2) Albumin 3.0 g/dL (3.4-5.0) Albumin/Globulin Ratio 1.1 (1.0-1.7) White Blood Count 11.8 x10^3/uL (4.0-11.0) Red Blood Count 3.95 x10^6/uL (4.30-5.70) Hemoglobin 12.9 g/dL (13.0-17.5) Hematocrit 39.4 % (39.0-53.0) Mean Corpuscular Volume 100 fL (79-100) Mean Corpuscular Hemoglobin 33 pg (25-35) Mean Corpuscular Hemoglobin Concent 33 g/dL (31-37) Red Cell Distribution Width 15.1 % (11.5-14.5) Platelet Count 263 x10^3/uL (140-400) Neutrophils (%) (Auto) 93 % (31-73) Lymphocytes (%) (Auto) 4 % (24-48) Monocytes (%) (Auto) 3 % (0-9) Eosinophils (%) (Auto) 0 % (0-3) Basophils (%) (Auto) 0 % (0-3) Neutrophils # (Auto) 10.9 x10^3uL (1.8-7.7) Lymphocytes # (Auto) 0.5 x10^3/uL (1.0-4.8) Monocytes # (Auto) 0.3 x10^3/uL (0.0-1.1) Eosinophils # (Auto) 0.0 x10^3/uL (0.0-0.7) Basophils # (Auto) 0.0 x10^3/uL (0.0-0.2) Segmented Neutrophils % 77 % (35-66) Band Neutrophils % 14 % (0-9) Lymphocytes % 6 % (24-48) Monocytes % 3 % (0-10) Platelet Estimate Adequate (ADEQUATE) Laboratory Tests Test 12/18/16 17:43 12/19/16 06:30 12/19/16 06:40 Troponin I Quantitative 0.155 ng/mL (0.000-0.055) Sodium Level 140 mmol/L (136-145) Potassium Level 4.4 mmol/L (3.5-5.1) Chloride Level 104 mmol/L (98-107) Carbon Dioxide Level 29 mmol/L (21-32) Anion Gap 7 (6-14) Blood Urea Nitrogen 7 mg/dL (8-26) Creatinine 0.7 mg/dL (0.7-1.3) Estimated GFR (Cockcroft-Gault) 116.7 BUN/Creatinine Ratio 10 (6-20) Glucose Level 139 mg/dL (70-99) Calcium Level 8.5 mg/dL (8.5-10.1) Magnesium Level 1.7 mg/dL (1.8-2.4) Total Bilirubin 0.4 mg/dL (0.2-1.0) Aspartate Amino Transf (AST/SGOT) 145 U/L (15-37) Alanine Aminotransferase (ALT/SGPT) 252 U/L (16-63) Alkaline Phosphatase 71 U/L (46-116) Total Protein 5.7 g/dL (6.4-8.2) Albumin 3.0 g/dL (3.4-5.0) Albumin/Globulin Ratio 1.1 (1.0-1.7) White Blood Count 11.8 x10^3/uL (4.0-11.0) Red Blood Count 3.95 x10^6/uL (4.30-5.70) Hemoglobin 12.9 g/dL (13.0-17.5) Hematocrit 39.4 % (39.0-53.0) Mean Corpuscular Volume 100 fL (79-100) Mean Corpuscular Hemoglobin 33 pg (25-35) Mean Corpuscular Hemoglobin Concent 33 g/dL (31-37) Red Cell Distribution Width 15.1 % (11.5-14.5) Platelet Count 263 x10^3/uL (140-400) Neutrophils (%) (Auto) 93 % (31-73) Lymphocytes (%) (Auto) 4 % (24-48) Monocytes (%) (Auto) 3 % (0-9) Eosinophils (%) (Auto) 0 % (0-3) Basophils (%) (Auto) 0 % (0-3) Neutrophils # (Auto) 10.9 x10^3uL (1.8-7.7) Lymphocytes # (Auto) 0.5 x10^3/uL (1.0-4.8) Monocytes # (Auto) 0.3 x10^3/uL (0.0-1.1) Eosinophils # (Auto) 0.0 x10^3/uL (0.0-0.7) Basophils # (Auto) 0.0 x10^3/uL (0.0-0.2) Segmented Neutrophils % 77 % (35-66) Band Neutrophils % 14 % (0-9) Lymphocytes % 6 % (24-48) Monocytes % 3 % (0-10) Platelet Estimate Adequate (ADEQUATE) Medications Active Scripts Medications Dose Route/Sig Max Daily Dose Days Date Category Xanax (Alprazolam) 0.25 Mg Tablet 1 Tab PO DAILY 04/30/15 Reported Vitamin D (Cholecalciferol (Vitamin D3)) 1,000 Unit Capsule 1 Cap PO DAILY 04/30/15 Reported Potassium Chloride 10 Meq Capsule.er 1 Cap PO DAILY 04/30/15 Reported Impression . 1. Acute hypoxemic respiratory failure. 2. Acute exacerbation of chronic obstructive pulmonary disease. 3. Acute nonspecific bronchitis. 4. Recent fall. 5. A 7 mm left lung nodule. 6. Mild ground glass opacities in the right upper lobe. Suspect pneumonitis versus pulmonary contusion. 7. Mild compression fracture at T11-T12, unknown. Plan . 1. Continue current oxygen supplementation, p.r.n. BiPAP. 2. steroids. 3. Avoid any further narcotic use. 4. Avoid benzodiazepines. 5. The patient was instructed on the importance to discontinue all non-prescribed medications including alcohol and marijuana. 6. Followup CT in 6 months thru PCP/ d/w patient 7. ok with home today DENZEL YANEZ MD Dec 19, 2016 14:50
[2016-12-19] MEDS ORDERED: predniSONE 20 MG TABLET PO SCH (17:00)
[2016-12-19] MEDS ORDERED: LEVO500T59 PO (17:12)
[2016-12-19 17:13] LABS: SPECIMEN SOURCE Urine (.)
--- NOTE | 2016-12-19 23:56 | ACF ---
Admission Forms Criteria DRUG INGESTION OR OVERDOSE Clinical Indications for Admission to Inpatient Care ( Place 'X' for any and all applicable criteria): Admission is indicated for severe toxicity as indicated by ANY ONE of the following(1)(2)(3)(4)(5)(6): [ ]I. Inpatient admission required rather than observation care (Also use Drug Ingestion or Overdose: Observation Care guideline as appropriate) because of ANY ONE of the following: [ ]a) Altered mental status that is severe or persistent [ ]b) Clinical finding (eg, metabolic acidosis, hypoglycemia, bradycardia) that is severe or persistent [ ]c) Toxic drug level that is persistent [ ]d) Psychiatric risk status not acceptable for outpatient management [ ]e) Continuous intravenous infusion of anticoagulation, platelet inhibitor, vasoactive, or antiarrhythmic medication (15)(16) [ ]f) Other condition, treatment or monitoring requiring inpatient admission [ ]II. Respiratory abnormalities [ ]III. Specific finding indicating severe and likely prolonged drug toxicity [ X]IV. Hemodynamic instability [ ]V. Dangerous arrhythmia [ ]. Hypertension requiring inpatient treatment Extended stay beyond goal length of stay may be needed for (4): [ ]a) Neurologic or respiratory compromise [ ]b) Hemodynamic instability [ ]c) Persistent toxic drug levels (25) [ ]d) Severe drug toxicities or complications [ ]e) Ongoing antidote treatment (eg, acetaminophen overdose)(5) [ ]f) Older patients(65 years or older) The original [employer] content created by [employer] has been revised. The portions of the content which have been revised are identified through the use of italic text or in bold, and [facility] has neither reviewed nor approved the modified material. All other unmodified content is copyright [employer]. Please see references footnoted in the original [facility] edition 2016 Admission Criteria Met?: Yes JAIMIE CABALLERO Dec 19, 2016 23:56
--- NOTE | 2016-12-20 22:34 | DS ---
DATE OF DISCHARGE: 12/19/2016 CHIEF COMPLAINT: Narcotic overdose. HOSPITAL COURSE: The patient is a 56-year-old gentleman with a past medical history of seizure disorders, who presented to the hospital via EMS when his and son found him on the floor snoring heavily at 4:00 a.m. He was unresponsive to EMS initially, was given Narcan with good response. He did have a prescription for Dilaudid, which he had received from his PCP just 3 days prior for a rib fracture sustained in a fall. The patient was admitted for observation, recovered uneventfully. No other issues arose and he was therefore discharged the following day. PHYSICAL EXAMINATION: VITAL SIGNS: Show a blood pressure of 135/71, heart rate of 102, respiratory rate at 18. He is afebrile. GENERAL: This is a 56-year-old gentleman, well-nourished, alert and oriented, in no acute distress. LUNGS: Clear. HEART: Regular rate and rhythm. ABDOMEN: Has positive bowel sounds, soft, nontender. EXTREMITIES: Show no edema. DISCHARGE DATE: 12/19/2016 DISCHARGE DIAGNOSIS: Unintentional narcotic overdose. DISCHARGE DISPOSITION: To home. DISCHARGE CONDITION: Improved. DISCHARGE MEDICATIONS: Please refer to MAR. DISCHARGE INSTRUCTIONS: The patient will follow up with PCP in 1-2 weeks. SEAN OWENS MD DR: ROLANDO/nts JOB#: [id number] / [id number]
== END 2016-12-19 17:33 | disposition home or self-care (01) | DRG 871 ==
LOC: ER 04:28 → 1 WEST ICU 05:46 → 4 NORTH 16:00
PROVIDERS: ADMIT Internal Medicine; ATTEND Internal Medicine
DX: A41.9 Sepsis, unspecified organism (principal); I50.31 Acute diastolic (congestive) heart failure; G92 Toxic encephalopathy; J18.9 Pneumonia, unspecified organism; J96.01 Acute respiratory failure with hypoxia; J44.0 Chronic obstructive pulmonary disease with (acute) lower respiratory infection; J44.1 Chronic obstructive pulmonary disease with (acute) exacerbation; M48.54XA Collapsed vertebra, not elsewhere classified, thoracic region, initial encounter for fracture; N17.9 Acute kidney failure, unspecified; S22.39XA Fracture of one rib, unspecified side, initial encounter for closed fracture; T40.2X1A Poisoning by other opioids, accidental (unintentional), initial encounter; J20.9 Acute bronchitis, unspecified; I11.0 Hypertensive heart disease with heart failure; F03.90 Unspecified dementia, unspecified severity, without behavioral disturbance, psychotic disturbance, mood disturbance, and anxiety; H54.42 Blindness, left eye, normal vision right eye; F41.9 Anxiety disorder, unspecified; F17.210 Nicotine dependence, cigarettes, uncomplicated; R91.1 Solitary pulmonary nodule; R74.0 Nonspecific elevation of levels of transaminase and lactic acid dehydrogenase [LDH]; B19.20 Unspecified viral hepatitis C without hepatic coma; F12.10 Cannabis abuse, uncomplicated; J32.9 Chronic sinusitis, unspecified; G40.909 Epilepsy, unspecified, not intractable, without status epilepticus; W18.39XA Other fall on same level, initial encounter; Y93.89 Activity, other specified; Y92.89 Other specified places as the place of occurrence of the external cause; Y99.8 Other external cause status; Z86.73 Personal history of transient ischemic attack (TIA), and cerebral infarction without residual deficits; Z87.81 Personal history of (healed) traumatic fracture; Z85.9 Personal history of malignant neoplasm, unspecified
CPT/HCPCS: 36415; 51702; 70450; 71010; 71260; 72125; 74177; 80048; 80053; 80061; 80076; 80307; 80329; 82550; 83605; 83690; 83735; 83880; 84484; 85007; 85027; 85610; 85730; 87040; 87070; 87205; 87449; 93005; 93306; 94250; 94640; 96374; 99406; J1650; J1956; J2310; J2405; J2543; J2930; J7030; J7512; J7620; 99291-25; G0479